=== PATIENT | female | born 1980 | race Two or more races ===

== ENCOUNTER 2016-12-31 10:50 | Emergency (ER) | payer OTHER ==
[~2016-12-31] VITALS: Ht 165.1 cm; Wt 80.3 kg
[2016-12-31 10:50] VITALS: BP 119/74
== END 2016-12-31 12:16 ==
LOC: ER 10:54
DX: Z02.89 Encounter for other administrative examinations (principal); Z34.82 Encounter for supervision of other normal pregnancy, second trimester; Z3A.19 19 weeks gestation of pregnancy
CPT/HCPCS: 99284; A4606; Z7610